=== PATIENT | male | born 1935 | race Asian ===

== ENCOUNTER 2019-11-02 07:21 | Inpatient (IN) | payer OTHER, SELFPAY ==
[~2019-11-02] VITALS: Ht 162.6 cm; Wt 40.8 kg
--- NOTE | 2019-11-02 07:22 | NUR ---
PT BIBA ALS TO ER BED 10
[2019-11-02 07:33] VITALS: BP 211/105
[2019-11-02] MEDS ORDERED: SODIUM CHLORIDE FLUSH 10 ML SYR IVF STA (07:33)
[2019-11-02] MEDS ORDERED: NITROGLYCERIN 0.4 MG TAB SL STA (07:33)
--- NOTE | 2019-11-02 07:45 | NUR ---
BIBA FROM HOME WITH C/O SOB AND HEMOPTYSIS - BRIGHT RED BLOOD IN EMESIS BAG UPON ARRIVAL. O2 SAT RA VARIES FROM 94-98%, PT PLACED ON 3LPM AT THIS TIME. MILD JVD NOTED. NO LABORED BREATHING OR ACCESORY MUSCLE USE NOTED. LUNG SOUNGS DIMINISHED IN BILAT BASES. PT APPEARS DISHEVELED & FRAIL. PT BP ELEVATED AT 211/105. PT AFEBRILE, NO RECENT TRAVEL. PT DENIES MEDICAL HISTORY. PT NOT ACTIVELY COUGHING AT THIS TIME. PT PLACED ON BEDSIDE CLERICAL CLERK, BED IN LOW POSITON, SIDE RAIL UP X1.
[2019-11-02 07:55] LABS: BASOPHILS # (AUTO) 0.3 K/uL (0.00-0.22); BASOPHILS % (AUTO) 2.6 % (0.0-2.0); EOSINOPHILS # (AUTO) 0.3 K/uL (0-0.4); EOSINOPHILS % (AUTO) 2.3 % (0.0-4.0); HEMATOCRIT 34.2 % (36-52); HEMOGLOBIN 11.2 g/dL (12.0-18.0); LYMPHOCYTES # (AUTO) 1.7 K/uL (2.0-11.5); LYMPHOCYTES % (AUTO) 15.2 % (20.5-51.1); MEAN CORPUSCULAR HEMOGLOBIN 33 pg (27-31); MEAN CORPUSCULAR HGB CONC 33 g/dL (33-37); MEAN CORPUSCULAR VOLUME 99.4 fL (80-94); MONOCYTES # (AUTO) 1.1 K/uL (0.8-1.0); MONOCYTES % (AUTO) 9.6 % (1.7-9.3); NEUTROPHILS # (AUTO) 7.8 K/uL (1.8-7.7); NEUTROPHILS % (AUTO) 70.3 % (42.2-75.2); PLATELET COUNT (AUTO) 196 K/uL (140-450); RED BLOOD CELL COUNT(AUTO) 3.44 MIL/uL (4.20-6.10); RED CELL DISTRIBUTION WIDTH 15.4 % (11.6-13.7); WHITE BLOOD COUNT (AUTO) 11.1 K/uL (4.8-10.8)
--- NOTE | 2019-11-02 08:15 | NUR ---
DR. DUKES EVALUATING PT AT BEDSIDE
[2019-11-02] MEDS ORDERED: ALBUTEROL HFA MDI 90 MCG/ACTUATION 8 GM INH ONE (08:25)
--- NOTE | 2019-11-02 08:30 | NUR ---
SPOKE WITH PT SISTER IN [employer] ([phone]). PER OUR CONVERSATION, PT WAS SEEN AT [facility] APPROX JULY 2019 AND CHEST XRAY WAS DONE AND PT WAS SENT HOME.
--- NOTE | 2019-11-02 08:50 | NUR ---
covid19 & flu swab collected and handed to lab
[2019-11-02] MEDS ORDERED: NACL 0.9% 1,000 ML IV ONE (09:05)
[2019-11-02] MEDS ORDERED: AZITHROMYCIN 250 MG TAB PO ONE (09:05)
[2019-11-02 09:08] LABS: PROTHROMBIN TIME 10.6 secs (10.8-13.4)
--- NOTE | 2019-11-02 09:10 | NUR ---
Janis from lab & RT Jess at bedside
[2019-11-02] MEDS ORDERED: cefTRIAXone 1,000 MG VIAL ONE (09:15)
[2019-11-02 09:37] LABS: APPEARANCE,URINE CLEAR (CLEAR); BILIRUBIN,URINE NEGATIVE (NEGATIVE); BLOOD, URINE NEGATIVE (NEGATIVE); COLOR,URINE YELLOW (YELLOW); LEUKOCYTE ESTERASE ,URINE NEGATIVE (NEGATIVE); NITRITE, URINE NEGATIVE (NEGATIVE); UGLUCOSE NEGATIVE (NEGATIVE)
[2019-11-02] MEDS ORDERED: HYDROcodone/APAP 5/325 MG 1 TAB TAB PO PRN (10:15)
[2019-11-02] MEDS ORDERED: ONDANSETRON 4 MG/2 ML VIAL IVP PRN (10:15)
[2019-11-02] MEDS ORDERED: ACETAMINOPHEN 325 MG TAB PO PRN (10:15)
[2019-11-02] MEDS ORDERED: MORPHINE SULFATE 4 MG/ML SYR IVP PRN (10:15)
--- NOTE | 2019-11-02 10:20 | NUR ---
pt resting in bed, no new needs at this time
--- NOTE | 2019-11-02 10:45 | NUR ---
waiting on bed to be cleaned for admission
--- NOTE | 2019-11-02 11:10 | NUR ---
bed still not clean/ready at this time
--- NOTE | 2019-11-02 11:16 | NUR ---
pt resting in bed, no new needs at this time.
[2019-11-02 11:36] LABS: ANION GAP 10.3 (8-16); CARBON DIOXIDE 28.5 mmol/L (21-32); CHLORIDE 96 mmol/L (98-107); CREATININE 1.2 mg/dL (0.6-1.3); GLUCOSE 138 mg/dL (74-106); POTASSIUM 4.8 mmol/L (3.5-5.1); SODIUM SERUM 130 mmol/L (136-145); UREA NITROGEN, BLOOD 32 mg/dL (7-18)
[2019-11-02 11:37] LABS: ALBUMIN 3.5 g/dL (3.4-5.0); ASPARTATE AMINOTRANSFERASE 44 U/L (15-37); TOTAL BILIRUBIN 0.4 mg/dL (0.0-1.0)
[2019-11-02 11:38] VITALS: BP 142/69
--- NOTE | 2019-11-02 11:38 | NUR ---
Patient will be admitted to care of dr. tobias. Admited to telemetry. Will go to room 103B. Belongings list completed. Report to DANG Kim.
--- NOTE | 2019-11-02 11:38 | NUR ---
PT ARRIVE UNIT ACCOMPANIED WITH ER NURSE ZURDO. PT IS AAOX4, SPEAKS SAMI, ABLE TO MAKE NEED KNOWS AND FOLLOW COMMAND. RESPIRATION EVEN AND UNLABORED ON RA. NO ACUTE SIGNS OF DISTRESS NOTED. IV ON LAC 20, CLEAN AND INTACT, SALINE LOCK. SKIN DRY AND CLEAN. PT IS CONTINENT AND ABLE TO AMBULATE TO THE BATHROOM. ORIENTED PT TO THE ROOM, AND INSTRUCTED PT ON HOW TO USE THE CALL LIGHT, TELEPHONE, BATHROOM, LIGHT, TV AND BED REMOTE, PT VERBALIZED OK. MRSA NARES COLLECTED AND VITAL SIGNS TAKEN; TEMP 97.5 ORAL, BP 142/69, PULSE 74, SPO2 98% RA, RR 16, DENIED PAIN, NAUSEA AND VOMITING AT THIS TIME. PROVIDED WATER AND REGIMEN TO PATIENT. UPDATED BOARD. TELE MONITOR ATTACHED. SAFETY MEASURES IN PLACE. BED IN LOW POSITION AND CALL LIGHT WITHIN REACH. INSTRUCTED PT TO USE THE CALL LIGHT FOR ANY ASSISTANCE AND PT AWARE.
--- NOTE | 2019-11-02 12:05 | NUR ---
DELIVERED LUNCH TRAY TO PT'S ROOM AND PT IS USING THE BATHROOM AT THIS TIME. NO SIGNS OF DISTRESS NOTED. TELE MONITOR ATTACHED. SAFETY MEASURES IN PLACE. INSTRUCTED PT TO USE THE CALL LIGHT FOR ANY ASSISTANCE AND PT SAID "OK".
--- NOTE | 2019-11-02 13:04 | NUR ---
RECEIVED A CALL FROM PT'S SIS-IN-LAW, INFORMED THAT PT TRANSFER TO ROOM 103B AND UPDATED CURRENT STATUS, DAHIANA WAS AWARE. ANSWERED ALL DAHIANA'S QUESTIONS.
--- NOTE | 2019-11-02 13:52 | NUR ---
ROUNDING. PROVIDED FRESH ICE WATER TO PT. PT IS AWAKE AND STATED " I AM OK, I AM ABOUT TO TAKE A NAP." PT PUT ON HIS OWN PJ PANT. DENIED SOB, NAUSEA AND VOMITING. NO SIGNS OF DISTRESS NOTED. TELE MONITOR ATTACHED. SAFETY MEASURES IN PLACE. INSTRUCTED PT TO USE THE CALL LIGHT FOR ANY ASSISTANCE AND PT AWARE.
--- NOTE | 2019-11-02 15:40 | NUR ---
ROUNDING. PT IS RESTING ON BED, AROUSABLE TO VOICE. RESPIRATION EVEN AND UNLABORED ON RA. NO SIGNS OF DISTRESS NOTED. TELE MONITOR ATTACHED. SAFETY MEASURES IN PLACE.
[2019-11-02 16:00] VITALS: BP 134/61
--- NOTE | 2019-11-02 17:15 | NUR ---
DR HONG IS ASSESSING AND TALKING TO PT. NO SIGNS OF DISTRESS NOTED. TELE MONITOR ATTACHED.
[2019-11-02] MEDS ORDERED: ALBUTEROL HFA MDI 90 MCG/ACTUATION 8 GM INH PRN (17:20)
[2019-11-02] MEDS: NACL 0.9% 1,000 ML IV SCH (17:38)
--- NOTE | 2019-11-02 17:38 | NUR ---
STARTED IVF PER MD ORDER. PROVIDED SPUTUM SPECIMEN CUP AND INSTRUCTED PT TO USE IT WHEN HE HAS SPUTUM AND PT AWARE. OBTAINED CONSENT FOR CT ANGIO. PT IS GETTING UP AND READY TO EAT HIS DINNER. NO SIGNS OF ACUTE DISTRESS NOTED. TELE MONITOR ATTACHED. SAFETY MEASURES IN PLACE.
--- NOTE | 2019-11-02 18:02 | NUR ---
COLLECTED SPUTUM CULTURE AND DELIVERED TO LAB. PT IS EATING HIS DINNER. NO SIGNS OF DISTRESS NOTED. TELE MONITOR ATTACHED. SAFETY MEASURES IN PLACE.
--- NOTE | 2019-11-02 18:37 | NUR ---
LEAD OFF. WENT IN AND REATTACHED LEADS. PT IS SITTING UP ON BED AND EATING DINNER. DENIED SOB, NAUSEA AND VOMITING. NO SIGNS OF DISTRESS NOTED. TELE MONITOR ATTACHED. SAFETY MEASURES IN PLACE. INSTRUCTED PT TO USE THE CALL LIGHT FOR ANY ASSISTANCE AND PT AWARE.
--- NOTE | 2019-11-02 19:18 | NUR ---
ENDORSED PT AT BEDSIDE TO IVAN FOR CONTINUITY OF CARE. PT IS IN STABLE CONDITION. TELE MONITOR ATTACHED.
--- NOTE | 2019-11-02 19:19 | NUR ---
RECEIVED BEDSIDE SHIFT REPORT FROM AM NURSE DONALD FOR CONTINUITY OF CARE. NO SIGNS OF DISTRESS NOTED. SAFETY MEASURES IN PLACE. CALL LIGHT WITHIN REACH TELE MONITOR ATTACHED
--- NOTE | 2019-11-02 19:40 | NUR ---
PERFORMED COMPLETE SHIFT ASSESSMENT, OBTAINED V/S. PATIENT TOLERATED WELL. NO SIGNS OF DISTRESS NOTED. RESPIRATIONS EVEN AND UNLABORED SPO2 99% ON RA. SAFETY MEASURES IN PLACE, TELE MONITOR ATTACHED AND CALL-LIGHT WITHIN REACH.
[2019-11-02 20:00] VITALS: BP 166/78
--- NOTE | 2019-11-02 22:07 | NUR ---
PT CALLED NURSING STATION TO ALERT OF IV PUMP ALARM. ADDRESSED THE IV PUMP. REASSESSED IV SITE. IV INTACT AND PATENT. EXPLAINED TO PATIENT THE HIGH PRESSURE WAS DUE TO HIM BENDING HIS ARM. PT UNDERSTOOD WILL CONTINUE TO MONITOR. SAFETY MEASURES IN PLACE CALL LIGHT WITHIN REACH.
[2019-11-03] VITALS: BP 180/84
--- NOTE | 2019-11-03 00:20 | NUR ---
PT IV PUMP ALARM SOUNDED DUE TO HIGH PRESSURE.. OBTAINED 0000 VITALS. PT IV SITE REASSESSED. I V FLUSHED AND PATENT. NO SIGNS OF INFILTRATION, PT DENIES PAIN AT SIGHT. PT HAD ELBOW BENT REORIENTED PT TO THE IMPORTANCE OF KEEPING ARM STRAIGHT TO ALLOW THE IV SITE TO PROPERLY INFUSE. OBTAINED PT VS. NO SIGNS OF DISTRESS NOTED WILL CONTINUE TO MONITOR
--- NOTE | 2019-11-03 02:40 | NUR ---
ROUNDING. PT RESTING. EASILY AROUSABLE. NO SIGNS OF DISTRESS NOTED. RESPIRATIONS EVEN AND UNLABORED ON RA. BED IN LOW POSITION CALL LIGHT WITHIN REACH
--- NOTE | 2019-11-03 03:30 | NUR ---
OBTAINED PT VITALS. NO SIGNS OF DISTRESS NOTED. PT AWAKE IN BED.SAFETY MEASURES IN PLACE TELE MONITOR ATTACHED CALL LIGHT WITHIN REACH
[2019-11-03 04:00] VITALS: BP 146/68
--- NOTE | 2019-11-03 05:16 | NUR ---
ROUNDING. PATIENT AWAKE AT SIDE OF BED. NO SIGNS OF DISTRESS NOTED. TELE MONITOR ATTACHED CALL LIGHT WITHIN REACH
--- NOTE | 2019-11-03 05:55 | NUR ---
PATIENT HAS BEEN SCREENED AND CATEGORIZED LOW NUTRITION RISK. PATIENT WILL BE SEEN WITHIN 7 DAYS OF ADMISSION. 11/09/19 SHYLA HODGES MS, RDN Addendum: 11/03/19 at [address] Previous Note Entered in Error. See correction below. PATIENT HAS BEEN SCREENED AND CATEGORIZED HIGH NUTRITION RISK. PATIENT WILL BE SEEN WITHIN 1-2 DAYS OF ADMISSION. 11/03/19-11/04/19 SHYLA HODGES MS, RDN
[2019-11-03] MEDS: NACL 0.9% 1,000 ML IV SCH (06:40)
--- NOTE | 2019-11-03 07:00 | NUR ---
RECEIVED PT. FROM NAVAL INSPECTOR NURSEIVAN. PT. IS ASLEEP AND IN BED. IV ON THE LEFT AC 20G WITH NS RUNNING AT 75ML/HR. PT. PT. IS ON ROOM AIR WITH O2 STAT OF 98%. NO SIGNS OF DISTRESS NOTED. PT. IS ON SWITCH BOX INSTALLER. PT. IS AMBULATORY. CALL LIGHT WITHIN REACH. WILL CONTINUE TO MONITOR.
--- NOTE | 2019-11-03 07:02 | NUR ---
ENDORSED PATIENT TO DAYSHIFT NURSE AT THE BEDSIDE FOR CONTINUITY OF CARE. PATIENT IN STABLE CONDITION
[2019-11-03 07:21] LABS: BASOPHILS # (AUTO) 0.1 K/uL (0.00-0.22); BASOPHILS % (AUTO) 1.2 % (0.0-2.0); EOSINOPHILS # (AUTO) 0.1 K/uL (0-0.4); EOSINOPHILS % (AUTO) 0.7 % (0.0-4.0); HEMATOCRIT 27.8 % (36-52); HEMOGLOBIN 9.5 g/dL (12.0-18.0); LYMPHOCYTES # (AUTO) 1.1 K/uL (2.0-11.5); LYMPHOCYTES % (AUTO) 9.5 % (20.5-51.1); MEAN CORPUSCULAR HEMOGLOBIN 34 pg (27-31); MEAN CORPUSCULAR HGB CONC 34 g/dL (33-37); MEAN CORPUSCULAR VOLUME 99.4 fL (80-94); MONOCYTES # (AUTO) 1.1 K/uL (0.8-1.0); MONOCYTES % (AUTO) 9.7 % (1.7-9.3); NEUTROPHILS % (AUTO) 78.9 % (42.2-75.2); PLATELET COUNT (AUTO) 151 K/uL (140-450); RED CELL DISTRIBUTION WIDTH 15.1 % (11.6-13.7); WHITE BLOOD COUNT (AUTO) 11.4 K/uL (4.8-10.8)
[2019-11-03 07:35] LABS: ANION GAP 12.6 (8-16); CARBON DIOXIDE 25.4 mmol/L (21-32); CHLORIDE 100 mmol/L (98-107); CREATININE 1.1 mg/dL (0.6-1.3); GLUCOSE 117 mg/dL (74-106); SODIUM SERUM 134 mmol/L (136-145); UREA NITROGEN, BLOOD 21 mg/dL (7-18)
[2019-11-03 07:39] LABS: MAGNESIUM 1.7 mg/dL (1.8-2.4); PHOSPHORUS 3.2 mg/dL (2.5-4.9)
[2019-11-03 08:00] VITALS: BP 162/130
[2019-11-03] MEDS ORDERED: AZITHROMYCIN 500 MG in DEXTROSE 5% 250 ML IV SCH (10:00)
--- NOTE | 2019-11-03 10:10 | NUR ---
ON THE PHONE WITH DR. HONG. REGARDING PT'S CT CHEST ANGIO AND LOW GFR. NEW ORDERS FOR CT CHEST WITHOUT CONTRAST AND NM PULMONARY VQ SCAN. REGARDING PT'S BLOOD PRESSURE OF 162/130, NEW ORDERS FOR HYDRALAZINE IVP 10MG PRN AND DISCONTINUATION OF FLUIDS GIVEN. WILL FOLLOW THROUGH
[2019-11-03] MEDS ORDERED: hydrALAZINE 20 MG/ML VIAL IVP PRN (11:20)
[2019-11-03 12:00] VITALS: BP 133/66
--- NOTE | 2019-11-03 12:00 | NUR ---
AFTERNOON MEDICATIONS GIVEN, NO SIGNS OF DISTRESS NOTED. V/S TAKEN. BP 133/66, HYDRALAZINE IVP NOT GIVEN DUE TO OUT OF PARAMETERS. WILL CONTINUE TO MONITOR.
--- NOTE | 2019-11-03 12:10 | NUR ---
RECEIVED CRITICAL REPORT FROM LAB WITH COVID-19 TEST NEGATIVE. PAGED TO DR. HONG ABOUT RESULT. WILL CONTINUE TO MONITOR.
[2019-11-03 16:00] VITALS: BP 156/80
[2019-11-03] MEDS ORDERED: DOXY100C9 PO (16:21)
[2019-11-03] MEDS ORDERED: AMOX-999 PO (16:21)
[2019-11-03] MEDS ORDERED: BENZ-196 PO (16:22)
--- NOTE | 2019-11-03 16:24 | NUR ---
SEEN BY DR. HONG, WITH ORDER TO D/C TODAY AND CM TO FOLLOW UP TOMORROW FOR HH FOR SAFETY EVAL AND PT, FOLLOW UP WITH DR. HONG IN [address] CHEST WITHOUT CONTRAST.
--- NOTE | 2019-11-03 16:30 | NUR ---
DR. HONG HAS SEEN PT. AND GIVEN ORDERS FOR DISCHARGE. WILL CALL PT'S FAMILY AND WILL FOLLOW THROUGH WITH DISCHARGE.
[2019-11-03 16:58] VITALS: BP 158/85
--- NOTE | 2019-11-03 17:00 | NUR ---
CALLED PT'S SISTER IN LAW, [facility], ABOUT DISCHARGE INSTRUCTIONS. SHE VERBALIZES UNDERSTANDING AND WILL RELAY TO PT. ABOUT INSTRUCTIONS WELL. WILL CONTINUE TO MONITOR.
--- NOTE | 2019-11-03 18:55 | NUR ---
PT. IS DISCHARGED TO HOME ACCOMPANIED BY IN PRIVATE VEHICLE. NO SIGNS OF DISTRESS NOTED. IV AND ARMBANDS REMOVED. DISCHARGED INSTRUCTIONS GIVEN. PT. VERBALIZES UNDERSTANDING.
--- NOTE | 2019-11-04 12:16 | NUR ---
DC PLANNING: CALLED [facility] [phone] PENG MARTINS LEFT A MESSAGE FOR AUTHORIZATION FOR HOME HEALTH AND PULMONARY FOLLOW UP. FAXED THE ORDER TO [phone] .ELIEZER TO FOLLOW
== END 2019-11-03 17:55 | disposition home health service (06) | DRG 191 ==
LOC: MED 07:21 → EEVIPCON 07:21 → MMU 10:17
PROVIDERS: ADMIT Internal Medicine Pulmonary Disease; ATTEND Internal Medicine Pulmonary Disease
DX: J47.1 Bronchiectasis with (acute) exacerbation (principal); R04.2 Hemoptysis; J18.0 Bronchopneumonia, unspecified organism; J47.0 Bronchiectasis with acute lower respiratory infection; J20.9 Acute bronchitis, unspecified; I16.0 Hypertensive urgency; Z87.891 Personal history of nicotine dependence; Z03.818 Encounter for observation for suspected exposure to other biological agents ruled out
CPT/HCPCS: 36415; 71045; 71250; 80048; 80053; 81003; 83605; 83735; 83880; 84100; 84484; 85025; 85610; 85730; 86886; 86900; 86901; 87040; 87070; 87081; 87186; 87205; 87804; 93005; 94664; 96365; 99285; J0360; J0456; J0696; J7030; J7060; Q0092

== ENCOUNTER 2019-11-20 13:46 | Inpatient (IN) | payer OTHER, SELFPAY ==
[~2019-11-20] VITALS: Ht 172.7 cm; Wt 44.0 kg
[~2019-11-20 13:46] MED LIST: AMOX-999 PO; BENZ-196 PO; DOXY100C9 PO
--- NOTE | 2019-11-20 13:46 | NUR ---
Patient BIBA ALS, transferred to bed 9. RN evaluating patient at bedside.
[2019-11-20 13:50] VITALS: BP 132/81
--- NOTE | 2019-11-20 13:55 | NUR ---
PT BIBA C/O GENERALIZED WEAKNESS FOR SEVERAL WEEKS AND DIARRHEA FOR ONE WEEK. PATIENT WAS SEEN IN [facility] ONE WEEK AGO AND DIAGNOSED WITH PNA. PT STATES HE USED TO WALK AROUND BUT NOT BE ABLE TO AMBULATE FOR WEEKS DUE TO GENERALIZED WEAKNESS. DENIES NAUSEA, VOMITING, FEVER. NO COUGH OR LABORED BREATHING NOTICED UPON TRIAGE AND ASSESSMENT. PATIENT STATES PAIN OF 0/10 AT THIS TIME; VSS; PATIENT POSITIONED FOR COMFORT; HOB ELEVATED; BEDRAILS UP X2; BED DOWN. ER MD MADE AWARE OF PT STATUS. PT IS IN ISOLATION ROOM AND ON THE MONITOR. WILL CLOSEDLY MONITOR PT'S VITAL SIGNS.
[2019-11-20] MEDS ORDERED: NACL 0.9% 1,000 ML IV SCH (14:15)
--- NOTE | 2019-11-20 14:40 | NUR ---
XRAY IS AT BEDSIDE IN THE ISOLATION ROOM.
--- NOTE | 2019-11-20 14:45 | NUR ---
SPOKE WITH JESSA MARCUM, PT'S SISTER IN LAW AT #[phone]. GATHERED INFO OF THAT PATIENT DOES NOT HAVE ANY ALLERGY TO ANY DRUGS. PT HAS SOB, PRODUCTIVE COUGH WITH THICK PHLEGM, AND GENERALIZED WEAKNESS FOR MORE THAN ONE WEEK. PER JOSSUE, PT DOES NOT HAVE ANY FEVER AT HOME. HOME HEALTH NURSE CORRINA PHONE# [phone] Addendum: 11/20/19 at 1448 by ERIC JOSSUE ALSO STATED PATIENT IS NOT TAKING ANY MEDICATIONS FOR PMH.
[2019-11-20 14:52] LABS: BASOPHILS # (AUTO) 0.1 K/uL (0.00-0.22); BASOPHILS % (AUTO) 1.2 % (0.0-2.0); EOSINOPHILS % (AUTO) 0.6 % (0.0-4.0); HEMATOCRIT 33.6 % (36-52); LYMPHOCYTES # (AUTO) 1.4 K/uL (2.0-11.5); LYMPHOCYTES % (AUTO) 23.8 % (20.5-51.1); MEAN CORPUSCULAR HEMOGLOBIN 33 pg (27-31); MEAN CORPUSCULAR HGB CONC 33 g/dL (33-37); MEAN CORPUSCULAR VOLUME 99.9 fL (80-94); MONOCYTES # (AUTO) 0.4 K/uL (0.8-1.0); MONOCYTES % (AUTO) 7.6 % (1.7-9.3); NEUTROPHILS # (AUTO) 3.9 K/uL (1.8-7.7); NEUTROPHILS % (AUTO) 66.8 % (42.2-75.2); PLATELET COUNT (AUTO) 225 K/uL (140-450); RED BLOOD CELL COUNT(AUTO) 3.36 MIL/uL (4.20-6.10); RED CELL DISTRIBUTION WIDTH 15.1 % (11.6-13.7); WHITE BLOOD COUNT (AUTO) 5.9 K/uL (4.8-10.8)
[2019-11-20 15:07] LABS: ANION GAP 18.3 (8-16); CARBON DIOXIDE 23.6 mmol/L (21-32); CHLORIDE 96 mmol/L (98-107); CREATININE 1.9 mg/dL (0.6-1.3); GLUCOSE 98 mg/dL (74-106); POTASSIUM 3.9 mmol/L (3.5-5.1); SODIUM SERUM 134 mmol/L (136-145); UREA NITROGEN, BLOOD 38 mg/dL (7-18)
[2019-11-20 15:10] LABS: PROTHROMBIN TIME 11.4 secs (10.8-13.4)
--- NOTE | 2019-11-20 15:10 | NUR ---
JELLO AND JUICE PROVIDED TO PATIENT AT BEDSIDE. PT IS EATING IN THE BED.
[2019-11-20 15:13] LABS: ALBUMIN 3.5 g/dL (3.4-5.0); ASPARTATE AMINOTRANSFERASE 54 U/L (15-37); TOTAL BILIRUBIN 0.7 mg/dL (0.0-1.0)
--- NOTE | 2019-11-20 16:19 | NUR ---
SPOKE WITH JESSA MARCUM, PT'S SISTER IN LAW AT #[phone]. AND TOLD JOSSUE WE ARE STILL WAITING FOR PENDING RESULTS FROM LAB AND PT HAS EATEN AND BEEN ABLE TO DRINK WATER.
[2019-11-20] MEDS ORDERED: HYDROcodone/APAP 5/325 MG 1 TAB TAB PO PRN ×2 (16:50)
[2019-11-20] MEDS ORDERED: ALBUTEROL 0.083% 2.5 MG/3 ML NEBU INH PRN (16:50)
[2019-11-20] MEDS ORDERED: ONDANSETRON 4 MG/2 ML VIAL IVP PRN (16:50)
[2019-11-20] MEDS ORDERED: ACETAMINOPHEN 325 MG TAB PO PRN (16:50)
[2019-11-20 16:56] LABS: APPEARANCE,URINE CLEAR (CLEAR); BILIRUBIN,URINE 1+ (NEGATIVE); BLOOD, URINE TRACE-I (NEGATIVE); COLOR,URINE YELLOW (YELLOW); LEUKOCYTE ESTERASE ,URINE NEGATIVE (NEGATIVE); NITRITE, URINE NEGATIVE (NEGATIVE); PH,URINE 5.5 (5.0-9.0); UGLUCOSE NEGATIVE (NEGATIVE)
--- NOTE | 2019-11-20 17:04 | NUR ---
CALLED [facility] FOR BED SENIOR POWER PLANT OPERATOR WILL CALL BACK
--- NOTE | 2019-11-20 17:10 | NUR ---
PT HAD BOWEL MOVEMENT IN THE BED. LOOSE STOOL APPERENTS ON THE BED SHEET. CLEARNED PT WITH CLEANING SWAPS, CHANGED A NEW BED SHEET, AND PUT DIAPPER ON THE PATIENT. STOOL SAMPLE OBTAINED AT THIS TIME AND SENT TO THE LAB FOR C-DIFF TESTING.
--- NOTE | 2019-11-20 17:17 | NUR ---
PT IS TAKING TO CT SCAN VIA GURNEY ASSISTED BY DIRECTOR IMAGING.
--- NOTE | 2019-11-20 17:45 | NUR ---
Patient is back from CT SCAN and U/S VIA GURNEY ASSISTED BY DESIGN PRINTER BALLOON.
--- NOTE | 2019-11-20 18:07 | NUR ---
Note edi in ED - 11/20/19 at 1808 by MED1 SPOKE WITH JESSA MARCUM PT'S SISTER IN LAW AT #[phone] AND TELLING THE PATIENT WILL BE STAYING IN THE HOSPITAL FOR OVERNIGHT.
--- NOTE | 2019-11-20 18:07 | NUR ---
SPOKE WITH JESSA MARCUM, PT'S SISTER IN LAW AT #[phone] AND TELLING THE PATIENT WILL BE STAYING IN THE HOSPITAL FOR OVERNIGHT.
--- NOTE | 2019-11-20 18:35 | NUR ---
Patient will be admitted to care of PNA, diarrhea. Admited to Telemetry. Will go to room 130A. Belongings list completed. Report to DANG Lovelace.
--- NOTE | 2019-11-20 18:35 | NUR ---
PT ARRIVED TO UNIT VIA GURNEY BY ER NURSE HERI-DANG. PT RESTING IN BED, AOX2 TO PERSON AND PLACE. ON ROOM AIR, WITH LEFT AC #20 RUNNING NS @ 80ML/HR. MRSA COMPLETED. NO S/S OF RESPIRATORY DISTRESS OR DISCOMFORT NOTED AT THIS TIME. WILL CONTINUE TO MONITOR.
[2019-11-20] MEDS: NACL 0.9% 1,000 ML IV SCH (18:58)
--- NOTE | 2019-11-20 19:00 | NUR ---
RECEIVED REPORT FROM PREVIOUS SHIFT ISOL FOR POSSIBLE C- DIFF, COLLECTED AND PENDING RESULT. PT A, AO X 4. PT ABULATORY BUT STEADY GAIT DUE TO GEN WEAKNESS. PT CACHECTIC. W/ IV ON THE LEFT AC G 20, PATENT AND INTACT. NOTED DYSPNEA UPON EXERTION WHEN PT WENT TO BATHROOM. PT HAD 1 BM LOOSE, GREENISH STOOL, STOOL CULTURE WAS UNCOLLECTED SINCE PT SAID HE SAID HE WASNT ABLE TO INFORM NURSE THAT HE WILL GO WHEN HE THOUGHT HE JUST NEEDED TO PEE. WILL TRY TO COLLECT STOOL CULTURE LATER. PLACED PT ON LOW BED
[2019-11-20 20:00] VITALS: BP_SYST 159; BP_SYST 165; BP_DIAS 90
--- NOTE | 2019-11-20 20:00 | NUR ---
PT W/ PRODUCTIVE COUGH GREENISH SPUTUM, PT IN ROOM AIR, CHECKED ON VITAL SIGNS.SLIGHTLY INCREASED BP = 159/[address] URIAS/ STAFF DEVELOPMENT COORDINATOR
--- NOTE | 2019-11-20 20:08 | NUR ---
RECEIVED CALL FROM DR. BRUNO. INFORMED THAT PT IS COUGHING PRODUCTIVE COUGH, GREEN SPUTUM. AND PT HAS BEEN NEGATIVE FOR COVID LAST ADMISSION NOVEMBER 01-2019. PT HAS PNA. SAID TO GET A COVID SWAB, PLACED PT ON R/O COVID. ISOLATION FOR DROPLET
[2019-11-20] MEDS ORDERED: ALBUTEROL HFA MDI 90 MCG/ACTUATION 8 GM INH PRN (20:55)
[2019-11-20] MEDS ORDERED: WATER STERILE 10 ML MC ONE (21:18)
[2019-11-20] MEDS: VANCOMYCIN 500 MG VIAL PO SCH (21:22)
[2019-11-21] VITALS (7 sets, daily range): BP systolic 126–195; BP diastolic 58–94
--- NOTE | 2019-11-21 | NUR ---
PT'S BP W/ BP INCREASED TO 160/90 MMHG HR 98; WILL ADMINISTER PRN MEDS
[2019-11-21] MEDS: VANCOMYCIN 500 MG VIAL PO SCH ×4 (00:04→18:10)
[2019-11-21] MEDS: hydrALAZINE 10 MG TAB PO PRN ×3 (00:05→12:39)
--- NOTE | 2019-11-21 01:07 | NUR ---
RECHECKED BP= 161/92 HR 92; WILL RECHECK AGAIN AND ADMINISTER BP PRN MEDS ORDERED.
--- NOTE | 2019-11-21 03:50 | NUR ---
PT ATE SOME MASHED POTATOES WILL CHANGED DITE TO PUREE PT CANNOT COULD NOT CHEW HER SOFT MECH DIET
--- NOTE | 2019-11-21 04:00 | NUR ---
RECHECKED BP ASTILL 161/ 90 MMGH ; HR 96; ADMINISTERED PRN MEDS HYDRALAZINE ; WILL RECHECK LATER
--- NOTE | 2019-11-21 05:00 | NUR ---
BP WNL 130/58, HR 93 WILL CONTINUE TO MONITOR PATIENT
[2019-11-21] MEDS: NACL 0.9% 1,000 ML IV SCH ×2 (05:16→18:11)
[2019-11-21 06:21] LABS: BASOPHILS # (AUTO) 0.1 K/uL (0.00-0.22); BASOPHILS % (AUTO) 1.6 % (0.0-2.0); EOSINOPHILS # (AUTO) 0.1 K/uL (0-0.4); EOSINOPHILS % (AUTO) 1.9 % (0.0-4.0); HEMATOCRIT 29.3 % (36-52); HEMOGLOBIN 9.8 g/dL (12.0-18.0); LYMPHOCYTES # (AUTO) 1.1 K/uL (2.0-11.5); MEAN CORPUSCULAR HEMOGLOBIN 33 pg (27-31); MEAN CORPUSCULAR HGB CONC 33 g/dL (33-37); MEAN CORPUSCULAR VOLUME 99.2 fL (80-94); MONOCYTES # (AUTO) 0.6 K/uL (0.8-1.0); MONOCYTES % (AUTO) 9.4 % (1.7-9.3); NEUTROPHILS # (AUTO) 4.5 K/uL (1.8-7.7); NEUTROPHILS % (AUTO) 70.1 % (42.2-75.2); PLATELET COUNT (AUTO) 206 K/uL (140-450); RED BLOOD CELL COUNT(AUTO) 2.96 MIL/uL (4.20-6.10); RED CELL DISTRIBUTION WIDTH 14.6 % (11.6-13.7); WHITE BLOOD COUNT (AUTO) 6.4 K/uL (4.8-10.8)
--- NOTE | 2019-11-21 07:08 | NUR ---
PT SLEEPING EASILY AWAKENED BY VERBAL STIMULI, NOT IN RESPIRATORY DISTRESS AND PT NO SOB, NO PAIN,WILL ENDORSE TO NEXT SHIFT
--- NOTE | 2019-11-21 07:10 | NUR ---
Received report from pm nurse Yaz. Pt asleep in bed, respirations even & nonlabored in room air as e/b visible regular chest rise and fall. Call light within reach. Remains on enhanced droplet isolation precautions.
[2019-11-21 07:30] LABS: ALBUMIN 2.9 g/dL (3.4-5.0); ANION GAP 11.4 (8-16); ASPARTATE AMINOTRANSFERASE 52 U/L (15-37); CHLORIDE 100 mmol/L (98-107); CREATININE 1.5 mg/dL (0.6-1.3); GLUCOSE 155 mg/dL (74-106); MAGNESIUM 1.5 mg/dL (1.8-2.4); PHOSPHORUS 3.1 mg/dL (2.5-4.9); POTASSIUM 3.4 mmol/L (3.5-5.1); SODIUM SERUM 135 mmol/L (136-145); TOTAL BILIRUBIN 0.6 mg/dL (0.0-1.0); UREA NITROGEN, BLOOD 28 mg/dL (7-18)
[2019-11-21] MEDS: PHARMACY COMMENTS MC SCH (09:00)
--- NOTE | 2019-11-21 09:03 | NUR ---
PATIENT HAS BEEN SCREENED AND CATEGORIZED HIGH NUTRITION RISK. PATIENT WILL BE SEEN WITHIN 1-2 DAYS OF ADMISSION. 11/21/19-11/22/[address]
--- NOTE | 2019-11-21 09:31 | NUR ---
Road Sign Installer Note: Basic Screen: Yes High Risk DC Screen [place]: JOSSUE CLEAN[employer] Home Relationship: [id number] Pre-Admission Living Arrangements: Lives with Other Prior ADL Independent Current Home Health Name/Tel: [facility] Current DME/02 Name/Tel: N/A Current Hospice Name/Tel: N/A Current Dialysis Name/Tel: N/A Healthcare Decision Maker: Patient Advance Directive No Discipline: Case Mgt/Social Svcs Tentative Discharge Plan/Destination: No Needs Identified Will require assistance post discharge: No Referred to House Designer: No Tentative Discharge Plan Summary: Patient is a 84-year-old male admitted for diarrhea. Patient's PMHX is not applicable. Patient was admitted from home. SW contacted [id number] Jossue Cle[employer] to verify demographics [phone]. Per [facility], patient lives with at address. Jossue stated that both patient and his are independent with all ADLs. Jossue stated that patient's is able to drive and pickling drum operator groceries and prepare meals, but typically, Jossue accompanies her. Jossue stated that she sometimes goes grocery shopping for patient and provides transportation to physician's appointments, although patient's is able to. Jossue stated that patient is alert/oriented at baseline and receives home health from [facility]. Jossue reported no mental health history and no substance abuse history. SW assessed for risk factors, but none were apparent. Tentative discharge plan is for patient to return home. No further needs identified. Signature: SHREYAS Pride Date: Nov 21, 2019 Time: 09:29
[2019-11-21] MEDS ORDERED: KCL 20 MEQ/WATER INJ PREMIX 100 ML IV SCH (11:30)
[2019-11-21] MEDS ORDERED: POTASSIUM CHLORIDE 10 MEQ TABER PO SCH (11:30)
[2019-11-21] MEDS: ENOXAPARIN 30 MG/0.3 ML SYR SUBQ SCH (12:13)
[2019-11-21] MEDS ORDERED: cloNIDine 0.1 MG TAB PO PRN (14:20)
--- NOTE | 2019-11-21 15:00 | NUR ---
Condom cath placed and connected to bedside urinary drain bag. No bladder distention noted. Pt denies and pain/discomfort at this time.
--- NOTE | 2019-11-21 16:36 | NUR ---
11/21/19 RD INITIAL ASSESSMENT COMPLETED PLEASE REFER TO NUTRITION ASSESSMENT UNDER CARE ACTIVITY FOR ESTIMATED NUTRITIONAL NEEDS. 1. CONTINUE PUREE DIET TOLERATED 2. CONSIDER SWALLOW EVALUATION FOR FOOD TEXTURE RECOMMENDATIONS 3. CONTINUE ENSURE BID 4. ENCOURAGE GRADUAL INCREASE IN PO INTAKE TO AVOID REFEEDING SYNDROME 5. FOLLOW PATIENTS FOOD PREFERENCE 6. IF PO INTAKE <50% EVEN WITH ENSURE CONSIDER ENTERAL NUTRITION, SUPPLEMENTAL TO PO DIET 7. RD TO FOLLOW-UP 2-3 DAYS, HIGH RISK ELVI ANNE RD
--- NOTE | 2019-11-21 19:20 | NUR ---
RECEIVED REPORT FROM PREVIOUS SHIFT DROPLET ISOL POSSIBLE COVID PT A, AO X 4. PT AMBULATORY BUT UNSTEADY GAIT DUE TO GEN WEAKNESS. PT CACHECTIC. W/ IV ON THE LEFT AC G 20, PATENT AND INTACT. NOTED DYSPNEA UPON EXERTION POC REVIEWED, CALL LIGHT WITHIN REACH. PLACED PT ON LOW BED. FALL RISK PRECAUTIONS IN PLACE.
--- NOTE | 2019-11-21 20:16 | NUR ---
ASSISTED PT TO EAT, AND PT EATING HIS DINNER 40%. PT SELF FEED , ONLY NEEDS TO SET UP MEAL. PT CONSUMES 1 GLASS OF WATER. 200 ML. WILL CONTINUE TO MONITOR.
--- NOTE | 2019-11-21 22:46 | NUR ---
CLEANED PAT MADE PAT COMFORTABLE FOR SLEEP. CHANGED CHUX NEEDED CONDOM CATHETER STILL IN PLACE. WILL CONTINUE TO MONITOR
[2019-11-22] VITALS: BP 144/71
--- NOTE | 2019-11-22 | NUR ---
VITAL SIGNS TAKEN AND PT IN STABLE CONDITION. STILL COUGHING NOTED. NO BM YET AT THIS TIME.
[2019-11-22] MEDS ORDERED: WATER STERILE 10 ML MC ONE (00:49)
[2019-11-22] MEDS: VANCOMYCIN 500 MG VIAL PO SCH ×4 (00:53→18:00)
--- NOTE | 2019-11-22 03:28 | NUR ---
CHECKED ON PATIENT, SLEEPING BUT EASILY AROUSABLE, NO SOB, NO RESPIRATORY DISTRESS WILL CONTINUE TO MONITOR.
[2019-11-22 04:00] VITALS: BP 148/73
[2019-11-22] MEDS: NACL 0.9% 1,000 ML IV SCH ×2 (06:21→18:46)
--- NOTE | 2019-11-22 06:21 | NUR ---
VERIFIED WITH SAQIB RIVAS IVF; BAR CODE NOT SCANNING
--- NOTE | 2019-11-22 06:38 | NUR ---
PT A, AO X 4, NOT IN RESPIRATORY DISTRESS, NO COMPLAINTS OF PAIN, AMBULATORY W/ ASSIST TO COMMODE ONLY. WILL ENDORSE TO NEXT SHIFT. AWAITING RESULTS OF COVID.
--- NOTE | 2019-11-22 07:46 | NUR ---
RECEIVED BEDSIDE SHIFT REPORT FROM PM RN PT AWAKE IN BED PT APPEARS STABLE AND IN NO APPARENT DISTRESS. PT IS ON TELE MONITORING. ALL SAFETY MEASURES ARE IN PLACE WILL CONTINUE TO MONITOR
[2019-11-22 08:25] VITALS: BP 155/80
--- NOTE | 2019-11-22 08:26 | NUR ---
DISCHARGE PLANNING: RECEIVED A PHONE CALL FROM [facility], STATING THAT THE PATIENT IS UNDER THEIR SERVICES BEFORE FOR NURSING. SHE PROVIDED ME OF THEIR CONTACT INFO [phone] AND FAX NUMBER [phone] IF IN ANY CASE PATIENT WILL BE NEEDING HOME HEALTH ON DC. Addendum: 11/22/19 at 0902 by Dora Chaparro CM THIS IS AN 84 Y/O MALE PATIENT FROM HOME, WHO CAME IN DUE GENERALIZED WEAKNESS, SOB AND DIARRHEA. PAST MEDICAL HISTORY INCLUDE COPD, HTN. INITIAL DIAGNOSIS OF DIARRHEA WITH PREVIOUS PNEUMONIA. CURRENT LABS INCLUDE WBC 6.4, H/H 9.8/29.3, NA/K 135/3.4, BU CREA 28/1.5 AND ALB 2.9. COVID PENDING. ON VANCOMYCIN. CHEST CT SHOWED SMALL INFILTRATE IN THE RIGHT LOWER LOBE. RENAL U/S NO HYDRONEPHROSIS, NON OBSTRUCTIVE PUNCTATE RIGHT NEPHROLITHIASIS AND ECHOGENIC RIGHT KIDNEY, SUGGESTIVE OF CHRONIC MEDICAL RENAL DISEASE. NEPHRO AND PULMO CONSULTS IN PLACE-NOT SEEN YET. DC PLAN PENDING ON PATIENT'S RESPONSE TO TREATMENT. Addendum: 11/25/19 at 1040 by Dora Chaparro CM RECEIVED A CALL FROM DANIEL OF [facility], STATING THAT THE PATIENT WAS DC'D ON MONDAY, BUT DID NOT RECEIVE ANY ORDERS FOR HOME HEALTH. ORDERS CHECKED. WITH DC ORDER FOR HOME HEALTH FOR HOME SAFETY EVAL AND HOME PT. CONTACTED [facility] AT [phone], ABLE TO SPEAK TO LANI. REQUESTED HER TO TRANSFER ME TO ELIEZER [facility], NO ANSWER. LEFT MESSAGE. ORDER AND PT NOTES FAXED TO [employer] [facility] AT [phone] AND [facility] AT [phone]. WILL FOLLOW UP. Addendum: 11/25/19 at 1424 by Dora Chaparro CM CONTACTED [facility] AT [phone], ABLE TO SPEAK TO DANIEL. SHE STATED SHE RECEIVED THE ORDER AND GOT THE AUTH WELL FROM THE INSURANCE AND THEY ARE GOOD TO GO.
[2019-11-22] MEDS: ENOXAPARIN 30 MG/0.3 ML SYR SUBQ SCH (09:00)
[2019-11-22] MEDS: PHARMACY COMMENTS MC SCH (09:00)
[2019-11-22] MEDS ORDERED: predniSONE 10 MG TAB PO SCH (09:00)
[2019-11-22 12:35] VITALS: BP 148/67
--- NOTE | 2019-11-22 13:59 | NUR ---
FREQUENT ROUNDING ON PT PT APPEARS STABLE AND IN NO APPARENT DISTRESS. ALL SAFETY MEASURES ARE IN PLACE
[2019-11-22] MEDS: predniSONE 20 MG TAB PO SCH (16:20)
[2019-11-22] MEDS ORDERED: CEFD300C3 PO (16:38)
[2019-11-22] MEDS ORDERED: PRED20TA5 PO ×2 (16:38→16:44)
[2019-11-22 16:45] VITALS: BP 164/76
--- NOTE | 2019-11-22 16:45 | NUR ---
PT REMOVED TELE MONITOR MULTIPLE TIMES PT STATES ITS BOTHERING HIM AND HE DOESNT WANT IT PLACED IT BACK ON PT 3 DIFFERENT TIMES. PT FINALLY REMOVED TELE MONITOR AND REFUSED TELE MONITOR BE PLACE BACK ON HIM. PT HAS DC ORDER PLACED PENDING CT RESULTS
[2019-11-22] MEDS ORDERED: CIPR250T6 PO (16:47)
[2019-11-22] MEDS ORDERED: AZITHROMYCIN 250 MG TAB PO SCH (17:00)
--- NOTE | 2019-11-22 18:04 | NUR ---
PATIENT PULLED OUT IV. PT PULLED OFF CONDOM CATH. ATTEMPTED TO START NEW IV 3 TIMES. NOT SUCCESSFUL. CALLED TO ASK ER TO ATTEMPT THEY STATED THEY WOULD BE BY LATER IF THEY HAVE A CHANCE. WILL WAIT TO SEE. CONDOM CATH OK TO DC SINCE PT IS PLANNED FOR DC POST CT ABDOMEN
--- NOTE | 2019-11-22 18:15 | NUR ---
P.T. NOTES D/C FROM P.T. AFTER TX, ENDORSED TO NSG; O2 SAT ROOM AIR=94%, DEMO MILD WHEEZING. Addendum: 11/22/19 at 1816 by Valerie Mitchell PT Amended: Links added.
--- NOTE | 2019-11-22 19:25 | NUR ---
RECEIVED FROM AM RN IN BED AWAKE AND SITTING AT EDGE OF BED LOOKING OUT THE WINDOW WATCHING PEOPLE PASSING BY. NO COMPLAINTS DONE. PT. FOR CT SCAN OF KIDNEY TONIGHT ORDERED. PT. AWARE. CALL LIGHT WITH IN REACH. WILL CONTINUE WITH CURRENT CARE.
[2019-11-22 20:45] VITALS: BP 149/85
--- NOTE | 2019-11-22 22:25 | NUR ---
PLACED CALL FOR MD URIAS RE" CT ABDOMEN/PELVIS RESULT REQUESTED BY MD URIAS. MD HDEZ CALLED AND TOLD HIM ABOUT THE RESULT . HE HANGED UP IMMEDIATELY AFTER RESULT READ BACK TO HIM. NO ORDERS GIVEN. INFORMED HOSPICE PATIENT CARE SECRETARY ABOUT HOW MD HDEZ DID NOT SAY ANYTHING BUT JUST HANGED UP. NO ORDERS GIVEN.
--- NOTE | 2019-11-22 22:34 | NUR ---
CT SCAN ABDOMEN DONE. RESULTS IN AND PAGED FOR SALES LEAD KETTY URIAS TO INFORM OF RESULT. PT. AT THIS TIME AWAKE AND EATING SNACK. ABLE TO VERBALIZE SIMPLE NEEDS WELL. PT. COVID RESULT #2 IN AND RELAYED BY LAB NEGATIVE. CHARGE NURSE AWARE AND INGOT STRIPPER AWARE.
--- NOTE | 2019-11-22 23:31 | NUR ---
MD URIAS CALLED AND WANTED TO KNOW ABOUT THE RESULT OF CT ABDOMEN/PELVIS. ASKING IF PT. STILL IN PAIN. I TOLD HIM NO ABDOMEN PAIN COMPLAINT DONE. MD URIAS WITH ORDER TO DISCHARGE PT. IN A.M.
--- NOTE | 2019-11-22 23:35 | NUR ---
MD URIAS AWARE OF PT. REFUSING IV SITE , - COVID 19 RESULT , AND HVAC OPERATIONS TECHNICIAN. MADE AWARE OF PT. REFUSING ANY IVF ABT TOO.
--- NOTE | 2019-11-22 23:54 | NUR ---
INFORMED PT. RE: MD URIAS CALLED BACK AND THAT HE SAID THAT PT. CAN BE DISCHARGED IN A.M. PER PT. OK WITH HIM. CHARGE NURSE AND PEDIATRIC RN AWARE.
--- NOTE | 2019-11-22 23:56 | NUR ---
PT. REFUSING TO HAVE NEW IVF LINE. "NO " EXPLAINED HE STILL HAVE IVF ABT. "NO" PT. ALSO REFUSED TELEMETRY MONITORING SINCE AM SHIFT. PER AM RN AWARE.
[2019-11-23] VITALS: BP 138/84
--- NOTE | 2019-11-23 01:31 | NUR ---
PT. SLEEPING AT THIS TIME. CALL LIGHT WITH IN REACH. NO SOB. COUGHING PRODUCTIVE INTERMITTENT SMALL PHLEGM.
[2019-11-23] MEDS: VANCOMYCIN 500 MG VIAL PO SCH ×2 (06:00)
[2019-11-23 06:02] VITALS: BP 152/81
[2019-11-23] MEDS: NACL 0.9% 1,000 ML IV SCH (06:29)
--- NOTE | 2019-11-23 06:30 | NUR ---
PT. STILL IN BED AWAKE AND NO COMPLAINTS DONE. WILL ENDORSE TO AM RN FOR CONTINUITY OF CARE. CALL LIGHT WITH IN REACH.
--- NOTE | 2019-11-23 07:20 | NUR ---
RECEIVED REPORT FROM IRRIGATION SYSTEM OPERATOR NURSE. PATIENT LYING DOWN IN BED SLEEPING, AROUSABLE BY VOICE. NO DISTRESS NOTED. DENIES ANY PAIN. AAOX3, CALM, COOPERATIVE, SKIN COLOR APPROPRIATE TO ETHNICITY, WARM TO TOUCH. SKIN INTACT. NO IV SITE PATIENT IS FOR DISCHARGE TO HOME. MD AWARE. RESPIRATIONS EVEN, UNLABORED, ON ROOM AIR. REVIEWED PLAN OF CARE WITH PATIENT. PATIENT VERBALIZED UNDERSTANDING. SAFETY MEASURES IN PLACE, CALL LIGHT WITHIN REACH. WILL CONTINUE TO MONITOR.
[2019-11-23] MEDS: PHARMACY COMMENTS MC SCH (09:00)
[2019-11-23] MEDS: ENOXAPARIN 30 MG/0.3 ML SYR SUBQ SCH (09:00)
--- NOTE | 2019-11-23 10:20 | NUR ---
DISCHARGE INSTRUCTIONS PROVIDED TO PATIENT IN PREFERRED LANGUAGE OF [place]. INSTRUCTIONS ON NEW/CHANGED MEDICATION REGIMEN AND SIDE EFFECTS, DIET REGIMEN, AND DISEASE PROCESS/MANAGEMENT OF DIARRHEA. ANSWERED ALL OF PATIENT'S QUESTIONS REGARDING DISCHARGE. PATIENT VERBALIZED COMPLETE UNDERSTANDING. NO IV SITE. ID BANDS REMOVED. PATIENT ALREADY DRESSED AND AWAITING FOR TO COME PICK HIM UP.
[2019-11-23] MEDS: predniSONE 20 MG TAB PO SCH (10:53)
--- NOTE | 2019-11-23 10:57 | NUR ---
SCHEDULED MEDICATIONS GIVEN. WILL CONTINUE TO MONITOR
--- NOTE | 2019-11-23 11:35 | NUR ---
ESCORTED PATIENT DOWN TO LOBBY VIA WHEELCHAIR. PATIENT DISCHARGED AT THIS TIME IN PRIVATE VEHICLE IN STABLE CONDITION TO HOME.
== END 2019-11-23 11:25 | disposition home or self-care (01) | DRG 177 ==
LOC: EEVIPCON 13:46 → MED 13:46 → INTOOBSV 16:46 → MMU 16:46 → EEVIPCON 16:46 → OBSVTOIN 11-21 11:23
PROVIDERS: ADMIT Hospitalist; ATTEND Hospitalist
DX: J69.0 Pneumonitis due to inhalation of food and vomit (principal); E43 Unspecified severe protein-calorie malnutrition; N17.9 Acute kidney failure, unspecified; Z68.1 Body mass index [BMI] 19.9 or less, adult; J44.1 Chronic obstructive pulmonary disease with (acute) exacerbation; E83.42 Hypomagnesemia; E86.9 Volume depletion, unspecified; E87.6 Hypokalemia; Z20.828 Contact with and (suspected) exposure to other viral communicable diseases; E86.0 Dehydration; R19.7 Diarrhea, unspecified; D64.9 Anemia, unspecified; R91.1 Solitary pulmonary nodule; R62.7 Adult failure to thrive; N18.9 Chronic kidney disease, unspecified; Z87.891 Personal history of nicotine dependence; Z79.899 Other long term (current) drug therapy
CPT/HCPCS: 96360; 96361; 99285; G0378; 36415; 71045; 71250; 76770; 80053; 81001; 83605; 83735; 83880; 84100; 84154; 84484; 85025; 85610; 85730; 87040; 87045; 87070; 87081; 87086; 93005; 97110; 97112; 97116; 97161-GP; 97530; J1650; J3370; J3480; J7030; J7512; Q0092; Q9967